=== PATIENT | male | born 1960 ===

== ENCOUNTER 2025-06-10 15:03 | Emergency (ER) | payer OTHER, SELFPAY ==
[2025-06-10 15:05] VITALS: BP 149/86; PULSE 77; RESP 18; TEMP 36.2; O2SAT 100; BMI 28.3
--- NOTE | 2025-06-10 15:10 | DI.US.S_ITS ---
PROCEDURE: US PERIPH VENOUS LOW EXTREM RT INDICATIONS: EDEMA POST RIGHT KNEE TRAUMA TECHNIQUE: Real-time imaging, as well as color and pulse Doppler interrogation, were performed of the lower extremity deep veins from the inguinal ligament to the popliteal fossa, with documentation of the visualized calf veins. COMPARISON: None. FINDINGS: The common femoral, femoral, popliteal, and the visualized calf veins are normally compressible, and free of intraluminal thrombus. Color and pulse Doppler demonstrate normal phasic intraluminal flow. There is normal augmentation response to distal compression maneuver. IMPRESSION: No findings of lower extremity deep venous thrombosis. Dictated by: Anton Kirkpatrick M.D. on 06/10/2025 at 15:22 Approved by: Anton Kirkpatrick M.D. on 06/10/2025 at 15:25
--- NOTE | 2025-06-10 20:50 | ED.LOWEXIN ---
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 No posterior calf pain. No chest pain or shortness of breath. Related Data Home Medications ?Medication ?Instructions ?Recorded ?Confirmed acetaminophen 325 mg tablet 325 mg PO ONCE PRN 06/10/25 06/10/25 (Tylenol) ibuprofen 200 mg capsule 200 mg PO Q6H PRN 06/10/25 06/10/25 Allergies Allergy/AdvReac Type Severity Reaction Status Date / Time No Known Drug Allergies Allergy Verified 06/10/25 15:05 Patient History Social History Smoking Status: Never smoker Smoking Status: Never smoker Exam Narrative Exam Narrative: GENERAL: Well-developed patient, in mild distress. HEAD: Atraumatic. Normocephalic. EYES: Pupils equal round and reactive. Extraocular motions intact. No scleral icterus. No injection or drainage. ENT: Nose without bleeding, purulent drainage. Throat without erythema, tonsillar hypertrophy or exudate. Airway patent. NECK: Trachea midline. Moves neck well. CARDIOVASCULAR: Regular rate and rhythm without murmurs, gallops, or rubs. RESPIRATORY: Clear to auscultation. Breath sounds equal bilaterally. No wheezes, rales, or rhonchi. EXTREMITIES: Small abrasion to anterior knee, full extension and flexion, no significant calf tenderness, no significant asymmetry compared to left calf, some yellow coloration consistent with resolving hematoma, some dependent hematoma changes to medial and lateral ankle, no ankle tenderness. He was able to stand without pain, and flex to crouched position without pain or difficulty with his right knee or right leg or right hip/thigh. BACK: Nontender without deformity or crepitance. No flank tenderness. NEURO: AOx3. Motor functions grossly nonfocal. SKIN: No rash or erythema of visible areas Initial Vital Signs Initial Vital Signs: Vital Signs Temperature 97.2 F L 06/10/25 15:05 Pulse Rate 77 06/10/25 15:05 Respiratory Rate 18 06/10/25 15:05 Blood Pressure 149/86 H 06/10/25 15:05 Pulse Oximetry 100 06/10/25 15:05 Oxygen Delivery Method Room Air 06/10/25 15:05 Course Orders Ordered: ED Orders 06/10/25 15:10 US periph venous low extrem rt Stat Vital Signs Vital signs: Vital Signs - 8 hr 06/10/25 21:59 Pulse Rate 60 Respiratory Rate 16 Blood Pressure 174/97 H Pulse Oximetry 99 Oxygen Delivery Method Room Air MDM - Extremity Injury (Lower) MDM Narrative Medical decision making narrative: 64-year-old male had fall at work early May, bruising to his knee area, has been walking around, noticed yellow coloration to his calf and ankle area. Denies pain to his calf and denies pain or injury to his ankle. Concerned about blood clot. Ultrasound venous Doppler ordered from triage. Ultrasound venous Doppler left lower extremity, shows no DVT at this time. See Radiology report. Exam and history consistent with proximal hematoma skin soft tissue with dependent travel and evolution of color with yellow skin color and some dependent ecchymoses at the ankle from knee area. His knee exam is quite stable, was able to stand and bend and extend his knee without difficulty, in fact was able to squat without difficulty with good strength and range of motion of lower extremities. L and I form filled out. No work restrictions identified. Follow up with PCP if needed. Discharge Plan Departure Patient Disposition: Home Clinical Impression: Hematoma of right lower extremity Activity Restrictions/Additional Instructions: Fall injury 05/29/25 from ground level, with knee abrasion and swelling of the skin, then subsequent swelling of the left calf, with some yellow coloration of the skin, examination consistent with a resolving hematoma. There is hematoma dependent at the level of the ankle, no actual ankle injury. Concern for clot, ultrasound was ordered from triage, Doppler venous ultrasound was negative for deep vein thrombosis at this time. Examination and history and findings consistent with a hematoma that is resolving, and in fact tends to travel with gravity downward, that accounts for the changes along the foreleg and the ankle area. This is not appearance consistent with cellulitis infection at this time, antibiotics not indicated. We discussed x-rays of the right knee, seems unlikely would have a knee fracture NV able to stand easily the way you did, and squat into crouched position and go back upright without obvious discomfort. X-ray right knee offered, declined. Recheck with your regular doctor later this week. Return to this/nearest emergency department for any change worsening symptoms or concerns prior. Prescriptions: No Action acetaminophen [Tylenol] 325 mg tablet 325 mg PO ONCE PRN ibuprofen 200 mg capsule 200 mg PO Q6H PRN Referrals: Miscellaneous,Doctor, MD [Primary Care Provider, Medical] Stand Alone Forms: Patient Portal/API
[2025-06-10 21:59] VITALS: BP 174/97; PULSE 60; RESP 16; O2SAT 99
== END 2025-06-10 21:55 | disposition home or self-care (01) ==
PROVIDERS: Emergency Provider Emergency Medicine
DX: S80.01XA Contusion of right knee, initial encounter (principal); W18.39XA Other fall on same level, initial encounter
CPT/HCPCS: 93971; 99281; 99283